=== PATIENT | female | born 1985 | race African-American/Black ===

== ENCOUNTER 2019-07-17 09:52 | Emergency (ER) | payer SELFPAY ==
[~2019-07-17] VITALS: Ht 157.5 cm; Wt 70.0 kg
[2019-07-17] MEDS ORDERED: IBUP-2437 PO (10:05)
[2019-07-17] MEDS ORDERED: ONDANSETRON 4MG ODT PO ONE (11:15)
[2019-07-17] MEDS ORDERED: KETOROLAC 30MG/ML VIAL IM ONE (11:15)
[2019-07-17 12:12] LABS: CLARITY URINE TURBID (CLEAR); COLOR URINE RED (YELLOW); KETONES URINE NEGATIVE (NEGATIVE); LEUKOCYTE ESTERASE URINE 2+ (NEGATIVE); NITRITE URINE NEGATIVE (NEGATIVE); OCCULT BLOOD URINE 3+ (NEGATIVE); PROTEIN URINE 2+ (NEGATIVE); SPECIFIC GRAVITY URINE 1.018 (1.005-1.030); UROBILINOGEN URINE 0.2 E.U./dL (0.2-1.0)
[2019-07-17] MEDS ORDERED: CEPHALEXIN 250MG CAPSULE PO ONE (13:00)
[2019-07-17 13:06] VITALS: BP 160/90
== END 2019-07-17 13:09 | disposition home or self-care (01) ==
LOC: ER 09:52
DX: N39.0 Urinary tract infection, site not specified (principal); R51 Headache
CPT/HCPCS: 81003; 81025; 87086; 96372; 99283; J1885; Q0162

== ENCOUNTER 2019-07-21 01:31 | Emergency (ER) | payer SELFPAY ==
[~2019-07-21] VITALS: Ht 162.6 cm; Wt 70.0 kg
[~2019-07-21 01:31] MED LIST: IBUP-2437 PO
[2019-07-21] MEDS ORDERED: SODIUM CHLORIDE 0.9% 1,000 ML IV ONE (07:02)
[2019-07-21] MEDS ORDERED: DIPHENHYDRAMINE 50MG/ML VIAL IV ONE (07:15)
[2019-07-21] MEDS ORDERED: METOCLOPRAMIDE HCL 10MG/2ML VIAL IV ONE (07:15)
[2019-07-21 07:48] LABS: BASOPHILS % 0.6 % (0.0-2.0); EOSINOPHILS % 0.8 % (0.0-5.0); HEMATOCRIT. 42.2 % (36.0-48.0); HEMOGLOBIN. 14.1 g/dL (12.0-16.0); LYMPHOCYTES % 13.8 % (20.0-50.0); MEAN CORPUSCULAR HEMOGLOBIN 29.6 pg (28.0-32.0); MEAN CORPUSCULAR VOLUME 88.5 fL (81.0-99.0); MEAN PLATELET VOLUME 9.5 fl (7.4-10.4); MONOCYTES % 7.1 % (2.0-8.0); NEUTROPHILS % 77.7 % (40.0-76.0); PLATELET 253 x1000/uL (130-400); RED BLOOD CELL COUNT 4.77 mill/uL (4.2-5.4); RED CELL DISTRIBUTION WIDTH 13.9 % (11.6-14.6)
[2019-07-21 08:00] LABS: CHLORIDE 108 mEq/L (98-107)
[2019-07-21] MEDS ORDERED: POTASSIUM CHLORIDE 20MEQ TABLET SR PO NR (10:00)
[2019-07-21] MEDS ORDERED: KETOROLAC 15MG/ML VIAL IV ONE (11:00)
[2019-07-21 11:44] VITALS: BP 120/78
== END 2019-07-21 11:45 | disposition home or self-care (01) ==
LOC: ER 01:31
DX: R51 Headache (principal); F12.10 Cannabis abuse, uncomplicated; F17.210 Nicotine dependence, cigarettes, uncomplicated
CPT/HCPCS: 36415; 70450; 80053; 81025; 85025; 96361; 96374; 96375; 99284; J1200; J1885; J2765; J7030

== ENCOUNTER 2022-04-10 20:48 | Emergency (ER) | payer SELFPAY ==
[~2022-04-10] VITALS: Ht 162.6 cm; Wt 65.9 kg
[2022-04-10 20:58] VITALS: BP 160/92
[2022-04-10] MEDS ORDERED: OXYMETAZOLINE HCL NASAL SPRAY 15ML BOTHNSTRLS PRN (22:15)
== END 2022-04-11 01:06 | disposition left against medical advice (07) ==
LOC: ER 20:48
DX: Z53.21 Procedure and treatment not carried out due to patient leaving prior to being seen by health care provider (principal)

== ENCOUNTER 2022-11-20 18:41 | Emergency (ER) | payer SELFPAY ==
[~2022-11-20] VITALS: Ht 162.6 cm; Wt 71.7 kg
[2022-11-20] MEDS ORDERED: FLUT9.9S BOTHNSTRLS (22:09)
[2022-11-20] MEDS ORDERED: AMOX-494 MT (22:09)
[2022-11-20 22:25] VITALS: BP 130/74
== END 2022-11-20 22:27 | disposition home or self-care (01) ==
LOC: ER 18:41
DX: J32.9 Chronic sinusitis, unspecified (principal); F12.10 Cannabis abuse, uncomplicated
CPT/HCPCS: 81025; 99283

== ENCOUNTER 2025-05-13 15:21 | Emergency (ER) | payer SELFPAY ==
[~2025-05-13] VITALS: Ht 162.6 cm; Wt 79.0 kg
[~2025-05-13 15:21] MED LIST changes: +AMOX-494 MT; +FLUT9.9S BOTHNSTRLS
[2025-05-13 15:25] VITALS: TEMP 36.8; O2SAT 96
[2025-05-13] MEDS ORDERED: ERYT60SO16 TP (16:54)
[2025-05-13 17:11] VITALS: BP 118/87; PULSE 64; RESP 16; O2SAT 100
== END 2025-05-13 17:20 | disposition home or self-care (01) ==
LOC: ER 15:30
DX: H10.89 Other conjunctivitis (principal); F12.90 Cannabis use, unspecified, uncomplicated
CPT/HCPCS: 99283